=== PATIENT | female | born 1965 | race Two or more races ===

== ENCOUNTER → 2019-06-15 12:28 | Outpatient (CLI) | payer OTHER ==
[~2019-06-15 12:28] MED LIST: SYNTHROID75 MCG PO
== END | disposition home or self-care (01) ==
LOC: LAB 12:28
DX: N20.0 Calculus of kidney (principal)

== ENCOUNTER 2019-06-23 16:11 | Emergency (ER) | payer OTHER ==
[~2019-06-23] VITALS: Ht 160 cm; Wt 61.2 kg
[2019-06-23] MEDS ORDERED: TILENOR (16:47)
== END 2019-06-23 20:03 | disposition home or self-care (01) ==
LOC: ER 16:11
DX: R07.89 Other chest pain (principal); R00.2 Palpitations